=== PATIENT | male | born 1940 | race Caucasian/White ===

== ENCOUNTER 2019-11-20 08:11 | Day surgery (SDC) | payer MEDICARE, SELFPAY ==
[2019-11-02 08:42] VITALS: BMI 23.3
--- NOTE | 2019-11-03 08:00 | HP_ITS ---
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 Wili Pike MD) Smoking Status: Current every day smoker alcohol intake: never HPI HPI HPI: ZULEIMA WILKES, is a 79 M who presents to the office today for HPI HPI Surgical H&P: Yes HPI: ZULEIMA WILKES, is a 79 M who presents to the office today for Screening colonoscopy. The patient does not report any abdominal pain or blood in his stool. He does not have any family history of colon cancer. He has never underwent a colonoscopy in the past. ROS General General: No weight change or fatigue Cardio Cardiovascular: No murmur, pacemaker, heart disease, atrial fibrillation, high blood pressure, heart attack, heart stent, palpitations, shortness of breat with exertion or chest pain Psych Psychiatric: No depression or anxiety Resp Respiratory: No shortness of breath, No sleep apnea, No cough, No COPD, No asthma, No emphysema, No wheezing Gastro Gastrointestinal: No abdominal pain, No nausea or vomiting, No diarrhea, No constipation, No blood in stool, No acid reflux, No hemorrhoids, No ulcers, No gallbladder problem, No black,tarry stools Dur Hematologic: No blood thinners Exam Const General: cooperative Orientation: alert, oriented x3 Resp Effort & Inspection: normal respiratory effort Auscultation: clear to auscultation bilaterally Cardio Rate: regular rate Rhythm: regular rhythm Heart Sounds: no murmurs GI Inspection: non-distended Palpation: soft, nontender Assessment & Plan Problems 1. Screen for colon cancer Z12.11 2. Tobacco abuse Z72.0 Plan The patient is over 75 but I believe he still warrants a screening colonoscopy as he has never had one. He would not require any further screenings after this. I discussed endoscopy with the patient and the patient would like to proceed. I discussed tobacco cessation with the patient as well and he said he is trying. I explained endoscopy in detail to the patient. I explained the risks including but not limited to stroke or heart attack with anesthesia, perforation of the GI tract, bleeding, infection. I explained that any of these could necessitate further emergency surgery. The patient understands and all questions were answered sufficiently. The patient wishes to proceed with procedure. We discussed the current risks associated with COVID-19. While it is understood that there is a community spread of COVID-19, the risk of jose g COVID-19 while at [facility] ([facility]) is very low; however, the risk cannot be completely mitigated because of the community spread of the disease. We discussed in detail the risk of exposure to and/or potential harm posed by the COVID-19 virus with having a surgery/procedure at this time versus the risk of delaying the surgery/procedure. It is not possible to know either the risk of delaying the surgery or procedure or chance of getting an infection with perfect accuracy, but a joint decision was made to proceed at this time with the scheduled surgery/procedure as indicated on the consent form. Patient was notified that we will need to comply with any screening or testing [facility] wishes to perform or that surgery may be delayed for any positive results. Wili Pike MD Pager: [facility] [address] [place] [address], [address] [place] [address] Office: Orders Orders: Colonoscopy 11/02/19 Z12.11 Coding Level of Care Code Off vis,new,level 2 Diagnoses Screen for colon cancer Z12.11 Tobacco abuse Z72.0 11/03/19 0800 <Electronically signed by Wili low MD> Date _ Wili Pike MD I have re-examined the patient. There are no clinical changes since date of exam.
[2019-11-20] VITALS (7 sets, daily range): BP systolic 135–172; BP diastolic 75–95; PULSE 61–73; RESP 16; TEMP 36.1–36.4; O2SAT 96–100; BMI 26.1
[2019-11-20] MEDS: Lactated Ringers 1,000 ML 100 ML IV ×2 (08:40→10:16)
--- NOTE | 2019-11-20 09:30 | COLBX_PTH ---
PATIENT: ZULEIMA WILKES LOC: EN U#:[id number] AGE/SX: 79/M ROOM: RE11/20/[address]: Dr. Wili Pike MD : 1940 BED: DIS: 11/20/2019 SPEC #: [id number] RECD: 11/20/19 10:16 STATUS: VISHNU GEETHA #: [id number] SHELIA: 11/20/19 09:[address]: Wili Pike DEPT: SURGICAL PATHOLOGY RECD BY: Maxime Luevano ENTERED: 11/20/19 11:37 SP TYPE: COLON BX OTHR DR: Dr. Noe Atkins MD Tissues: A - Ascending colon B - Transverse colon C - Transverse colon D - Transverse colon E - Transverse colon F - Transverse colon G - Sigmoid colon biopsy Procedures: Surgery Specimen Level IV HEADER OPERATION: Colonoscopy (MAC) PRE-OP DIAGNOSIS: Screening TISSUE SUBMITTED: A - Ascending colon polyps (2), B - Transverse colon polyp #1, C - Mid transverse colon polyp #2, D - Transverse polyp #3, E - Transverse polyp biopsy #4, F - Distal transverse polyp #5, G - Sigmoid colon polyp MICROSCOPIC DIAGNOSIS A. Ascending colon polyps, biopsy: Fragments of tubular adenoma. B. Transverse colon polyp #1, biopsy: Fragments of tubular adenoma. C. Mid transverse colon polyp #2, biopsy: Tubular adenoma. D. Transverse colon polyp #3, biopsy: Fragments of colonic mucosa with cautery artifacts. E. Transverse colon polyp #4, biopsy: Tubular adenoma. F. Distal transverse colon polyp #5, biopsy: Tubular adenoma. G. Sigmoid colon polyp, biopsy: Tubular adenoma. Fragments of fecal material. SJ:louie 11/23/19 MICROSCOPIC DESCRIPTION Slides are reviewed. GROSS DESCRIPTION A - Received in fixative is one container labeled with the patient's name and designated ascending polyp. The specimen consists of multiple irregular fragments of light king soft tissue that in aggregate measure 1.5 x 0.5 x 0.3 cm. The specimen is totally submitted in one cassette. B - Received in fixative is one container labeled with the patient's name and designated transverse polyp. The specimen consists of multiple irregular fragments of light king soft tissue that in aggregate measure 1 x 0.5 x 0.1 cm. The specimen is totally submitted in one cassette. C - Received in fixative is one container labeled with the patient's name and designated mid transverse polyp #2. The specimen consists of a piece of king-pink polyp measuring 1 x 0.6 x 0.5 cm. The specimen is bisected and submitted entirely in one cassette. D - Received in fixative is one container labeled with the patient's name and designated transverse polyp #3. The specimen consists of two irregular fragments of light king soft tissue that in aggregate measure 0.2 x 0.2 x 0.1 cm. The specimen is totally submitted in one cassette. E - Received in fixative is one container labeled with the patient's name and designated transverse polyp #4 biopsy. The specimen consists of one irregular fragment of light king soft tissue that measures 0.4 x 0.3 x 0.1 cm. The specimen is totally submitted in one cassette. F - Received in fixative is one container labeled with the patient's name and designated transverse polyp #5. The specimen consists of a piece of king-pink polyp measuring 0.3 x 0.3 x 0.2 cm. G - Received in fixative is one container labeled with the patient's name and designated sigmoid polyp. The specimen consists of multiple irregular fragments of king soft tissue mixed with fecal material that in aggregate measure 2.5 x 0.5 x 0.1 cm. The specimen is totally submitted in one cassette. / SJ:rg 11/20/19 TC:1 CPT: 72449 x7
--- NOTE | 2019-11-20 10:10 | OP.COLON_ITS ---
Patient Name: Buck Andre Procedure Date: 11/20/2019 9:18 AM Date of : 1940 Age: 79 Procedure: Colonoscopy Indications: Screening for colorectal malignant neoplasm Providers: Wili Pike MD Referring MD: Noe Atkins MD Medicines: Monitored Anesthesia Care Patient Profile: This is a 79 year old male. Refer to note in patient chart for documentation of history and physical. Last Colonoscopy: none. The patient's first colonoscopy is today. Complications: No immediate complications. Estimated blood loss: Minimal. Procedure: Pre-Anesthesia Assessment: - Prior to the procedure, a History and Physical was performed, and patient medications and allergies were reviewed. The patient's tolerance of previous anesthesia was also reviewed. The risks and benefits of the procedure and the sedation options and risks were discussed with the patient. All questions were answered, and informed consent was obtained. Prior Anticoagulants: The patient has taken no previous anticoagulant or antiplatelet agents. After reviewing the risks and benefits, the patient was deemed in satisfactory condition to undergo the procedure. After I obtained informed consent, the scope was passed under direct vision. Throughout the procedure, the patient's blood pressure, pulse, and oxygen saturations were monitored continuously. The pediatric colonoscope was introduced through the anus and advanced to the cecum, identified by appendiceal orifice and ileocecal valve. The colonoscopy was performed without difficulty. The patient tolerated the procedure well. The quality of the bowel preparation was good. Scope In: 9:30:48 AM Scope Withdrawal Time 0 hours 26 minutes 38 seconds Scope Out: 10:03:50 AM Total Procedure Duration Time 0 hours 33 minutes 2 seconds Findings: Eight polyps were found in the sigmoid colon, transverse colon and ascending colon. These polyps were removed with a hot snare. Resection and retrieval were complete. Multiple small-mouthed diverticula were found in the sigmoid colon. Internal hemorrhoids were found. Impression: - Eight polyps in the sigmoid colon, in the transverse colon and in the ascending colon, removed with a hot snare. Resected and retrieved. - Diverticulosis in the sigmoid colon. - Internal hemorrhoids. Recommendation: - Repeat colonoscopy in 3 years for surveillance of multiple polyps. - Continue present medications. Procedure Code(s): --- Professional --- 40981, Colonoscopy, flexible; with removal of tumor(s), polyp(s), or other lesion(s) by snare technique Diagnosis Code(s): --- Professional --- Z12.11, Encounter for screening for malignant neoplasm of colon D12.5, Benign neoplasm of sigmoid colon D12.3, Benign neoplasm of transverse colon (hepatic flexure or splenic flexure) D12.2, Benign neoplasm of ascending colon K64.8, Other hemorrhoids K57.30, Diverticulosis of large intestine without perforation or abscess without bleeding CPT copyright 2017 [employer]. All rights reserved. The codes documented in this report are preliminary and upon supervisor engines road review may be revised to meet current compliance requirements. Wili Pike MD 11/20/2019 10:10:06 AM This report has been signed electronically. Number of Addenda: 0 Note Initiated On: 11/20/2019 9:18 AM
--- NOTE | 2019-11-20 10:10 | OP.CCLET_ITS ---
11/20/2019 Noe Atkins MD [address] [id number] Re : Colonoscopy procedure for Buck Andre Dear Dr. Atkins This procedure was performed on Wednesday, November 20, 2019. My impressions and recommendations are as follows: Impressions : - Eight polyps in the sigmoid colon, in the transverse colon and in the ascending colon, removed with a hot snare. Resected and retrieved. - Diverticulosis in the sigmoid colon. - Internal hemorrhoids. Recommendations : - Repeat colonoscopy in 3 years for surveillance of multiple polyps. - Continue present medications. My findings are described in the full procedure note, which is enclosed. If I can be of further assistance, please feel free to contact me at Doctor phone number(s): , Work: . Sincerely, Wili Pike MD 11/20/2019 10:10:06 AM This report has been signed electronically.
== END 2019-11-20 10:47 | disposition home or self-care (01) ==
LOC: EN 08:12 → AC 08:12
PROVIDERS: Anesthesiology; PCP Family Medicine; Referring Provider Family Medicine; Visit Provider Surgery
PROC: 0DJD8ZZ Inspection of Lower Intestinal Tract, Via Natural or Artificial Opening Endoscopic (ICD-10-PCS; CPT 45378; principal; 2019-11-20 09:25)
DX: Z12.11 Encounter for screening for malignant neoplasm of colon (principal); D12.2 Benign neoplasm of ascending colon; D12.5 Benign neoplasm of sigmoid colon; D12.3 Benign neoplasm of transverse colon; Z11.59 Encounter for screening for other viral diseases; K57.30 Diverticulosis of large intestine without perforation or abscess without bleeding; K64.8 Other hemorrhoids; F17.200 Nicotine dependence, unspecified, uncomplicated; Z79.899 Other long term (current) drug therapy
CPT/HCPCS: 45385; 87635; 88305; 94799; J7120; J2405; U0003

== ENCOUNTER 2024-08-26 19:04 | Emergency (ER) | payer MEDICARE, SELFPAY ==
[2024-08-26] VITALS (13 sets, daily range): BP systolic 149–223; BP diastolic 52–136; PULSE 29–105; RESP 12–21; TEMP 36–36.8; O2SAT 76–100; BMI 25.1
--- NOTE | 2024-08-26 19:19 | EKG12_ITS ---
Test Reason : SNYCOPE Blood Pressure : */* mmHG Vent. Rate : 32 BPM Atrial Rate : 78 BPM P-R Int : * ms QRS Dur : 144 ms QT Int : 540 ms P-R-T Axes : 63 -5 25 degrees QTcB Int : 394 ms Critical Test Result: Low HR , Arrhythmia , AV Block Sinus rhythm with complete heart block and Idioventricular rhythm Right bundle branch block Abnormal ECG Emergency Transfer for [facility] Critical Confirmed by KYLE UP ([id number]), video tape editor CRYSTAL HAGER ([id number]) on 08/31/2024 7:29:03 AM Referred By: KYRA/CAYDEN Confirmed By: KYLE UP
--- NOTE | 2024-08-26 19:35 | EDS_ITS ---
HPI History of Present Illness Chief Complaint: Syncope Informant: patient and family Narrative Narrative: 84-year-old male presenting to the emergency room with dizziness and fall. Patient states over the past couple months he has had intermittent episodes of lightheadedness/dizziness. He states he has been able to lay down when he gets back up he feels fine. Today he began to feel that way he laid down on the couch to take a nap. He states that when he woke he was on the floor does not recall how he got there. He notes he hit his head on something and has pain in the right ankle and foot. He states he has been having some increased shortness of breath recently. He notes a history of hypertension and hypercholesterolemia is on lisinopril and rosuvastatin. He denies any known coronary artery disease or cardiac dysrhythmias. He denies any current neck or back pain. [facility] Medical History Hypercholesteremia Hypertension Rash Home Medications ?Medication ?Instructions ?Recorded ?Last Taken ?Type loratadine 10 mg tablet (Allergy 10 mg PO DAILY Unknown History Relief (loratadine)) lisinopril 40 mg tablet 40 mg PO DAILY 08/26/24 Unkn own History rosuvastatin 5 mg tablet 5 mg PO DAILY 08/26/24 Unkno wn History Allergy/AdvReac Type Severity Reaction Status Date / Time No Known Allergies Allergy Verified 08/26/24 19:23 Social History Smoking Status: Current every day smoker tobacco type: cigars alcohol intake: never ROS ROS ED Constitutional Constitutional ED: Denies chills, fever(s) or weight loss Eyes Eyes: Denies change in vision or diplopia ENT ENT ED: Denies ear pain, rhinorrhea or sore throat Cardiovascular Cardiovascular: Reports other Details: Intermittent lightheadedness ; Denies chest pain, orthopnea, palpitations or racing heartbeat Respiratory/Chest Respiratory/Chest: Reports dyspnea and dyspnea on exertion; Denies cough or orthopnea Gastrointestinal Gastrointestinal: Denies abdominal pain, diarrhea, nausea or vomiting Genitourinary Genitourinary ED: Denies dysuria, hematuria or urinary frequency Musculoskeletal Musculoskeletal: Reports other Details: Right ankle/foot pain ; Denies arthralgias, back pain, myalgias or neck pain Integumentary Denies abscess or rash Neurologic Neurologic: Denies headache(s) or weakness Psychiatric Psychiatric: Denies anxiety, depression, suicidal ideation or suicidal thoughts Endocrine Endocrinology: Denies polydipsia, polyphagia or polyuria Allergic/Immunologic Allergic/Immunologic ED: Denies mouth swelling, tongue swelling or urticaria EXAM Physical Exam Const Vital Signs: 08/26/24 19:06 08/26/24 19:35 08/26/24 19:36 Temperature 96.8 F L Temperature Source Temporal Pulse Rate 32 L 74 Respiratory Rate 16 21 H Respiratory Effort Short of Breath Respiratory Depth Respiratory Pattern Normal Blood Pressure 169/136 H 223/54 H Blood Pressure Mean 147 110 Pulse Ox 100 95 Oxygen Delivery Method Room Air Room Air 08/26/24 19:36 08/26/24 19:40 08/26/24 19:46 Temperature Temperature Source Pulse Rate Respiratory Rate Respiratory Effort Short of Breath Short of Breath Respiratory Depth Normal Respiratory Pattern Normal Normal Blood Pressure Blood Pressure Mean Pulse Ox 98 Oxygen Delivery Method Room Air 08/26/24 20:00 08/26/24 20:15 08/26/24 20:30 Temperature Temperature Source Pulse Rate 42 L 31 L 30 L Respiratory Rate 18 12 Respiratory Effort Respiratory Depth Respiratory Pattern Blood Pressure 198/66 H 149/109 H Blood Pressure Mean 105 122 Pulse Ox 97 97 Oxygen Delivery Method Room Air Room Air 08/26/24 20:30 08/26/24 20:32 08/26/24 20:45 Temperature Temperature Source Pulse Rate 50 L 55 L 29 L Respiratory Rate 15 13 16 Respiratory Effort Respiratory Depth Respiratory Pattern Blood Pressure 176/52 H Blood Pressure Mean 84 Pulse Ox 76 83 100 Oxygen Delivery Method Room Air 08/26/24 21:00 08/26/24 21:15 08/26/24 21:30 Temperature Temperature Source Pulse Rate 30 L 95 94 Respiratory Rate 17 13 15 Respiratory Effort Respiratory Depth Respiratory Pattern Blood Pressure 158/53 H Blood Pressure Mean 81 Pulse Ox 96 100 100 Oxygen Delivery Method Room Air 08/26/24 21:45 08/26/24 22:00 08/26/24 22:00 Temperature 98.2 F Temperature Source Pulse Rate 105 H 82 82 Respiratory Rate 17 16 16 Respiratory Effort Respiratory Depth Respiratory Pattern Blood Pressure 175/68 H 175/68 H Blood Pressure Mean 99 103 Pulse Ox 94 93 93 Oxygen Delivery Method Room Air Positive well nourished and well developed General Appearance ED: well developed HEENT Reports normocephalic and moist mucous membranes HEENT Narrative: There is a midline contusion of the forehead. Eyes PERRL and EOMs intact bilaterally Neck no lymphadenopathy, supple and no JVD Resp normal respiratory effort and clear to auscultation bilaterally Cardio no murmurs Rate: bradycardia GI normal to inspection, nondistended, normoactive bowel sounds and non-tender Palpation: soft Back/Spine no CVA tenderness and normal ROM Extremity normal to inspection General Extremety ED: Negative for edema General Extremity: Negative for edema Neuro oriented x3 and CN's II-XII intact bilaterally Neuro Narrative: GCS 15 Sensorium / Orientation: alert Motor Exam: strength 5/5 throughout Psych mental status grossly normal Mood & Affect: Negative for depressed or tearful Skin no rashes or lesions noted Skin Narrative: There is some mild swelling and contusion noted over the dorsal lateral aspect of the right foot just inferior to the lateral malleolus. The lateral malleolus is mildly tender to palpation. MDM MDM MDM Narrative Medical decision making narrative: Differential diagnosis includes cardiac dysrhythmia including third-degree heart block, acute coronary syndrome, electrolyte abnormalities, intracranial hemorrhage, ankle foot fracture ankle sprain foot sprain ankle foot contusion congestive heart failure EKG in triage confirms third-degree heart block. Patient is mentating normally and is actually on the hypertensive side. CT of the brain was obtained read by radiology reviewed by myself as no acute intracranial hemorrhage. My independent interpretation of the plain films of the right ankle and foot is no acute fracture. My independent interpretation of the chest x-ray is mild vascular congestion. Patient's white count is 12.2 hemoglobin 14.5 platelet count of 256. Normal coags. BNP is 310 magnesium 2.5 potassium 4.0 sodium 139. Glucose is 123. The patient's troponin is 14. Patient has remained on the hypertensive side. His heart rate remains around 30. We do not have the ability to put a pacemaker in him this week at this institution. He does not have a preference for larger hospitals. I spoke with [facility] and Dr. Rivera who has accepted him. Patient was updated and is comfortable with this plan History & Record Review Discussion w/independent historian: Patient and Family Additional record(s) reviewed:: Prior outpatient record, Prior ED visit and Prior labs Lab Data Attestation: I reviewed the patient's lab results. Labs: Laboratory Results - last 24 hr 08/26/24 08/26/24 19:40 21:39 WBC 12.2 H RBC 4.78 Hgb 14.5 Hct 44.6 MCV 93.3 MCH 30.3 MCHC 32.5 RDW Std Deviation 45.3 H RDW Coeff of Palomo 13.3 Plt Count 256 MPV 10.0 Immature Gran % (Auto) 0.500 Neut % (Auto) 58.5 Lymph % (Auto) 29.3 Falls % (Auto) 7.7 Eos % (Auto) 3.0 Baso % (Auto) 1.0 Absolute Neuts (auto) 7.1 Absolute Lymphs (auto) 3.56 Nucleated RBC % 0 PT 13.5 INR 1.0 APTT 25.4 Sodium 139 Potassium 4.0 Chloride 102 Carbon Dioxide 24.5 Anion Gap 12 BUN 17 Creatinine 0.90 Estim Creat Clear Calc 54.10 Est GFR (MDRD) Non-Af 85 BUN/Creatinine Ratio 18.9 Glucose 123 H Calcium 9.5 Magnesium 2.5 H Troponin T High Sens 14 Troponin T Hi Sens 2 Hr 15 NT pro BNP II 310 Radiography Diagnostic Testing: Clinical Impression(s) from Imaging Studies Brain CT 08/26/24 19:43 IMPRESSION: No acute abnormality Reading Location: [facility] Ankle X-Ray 08/26/24 19:50 IMPRESSION: Negative right ankle Reading Location: [facility] Chest X-Ray 08/26/24 19:50 IMPRESSION: Prominent bilateral interstitial markings, no focal consolidation. [facility] 08/26/24 19:50 IMPRESSION: NO ACUTE FRACTURE OR DISLOCATION. Reading Location: [facility] EKG Initial EKG: Attestation: I personally reviewed and interpreted this EKG as follows: Comments: Third-degree heart block is noted with a ventricular rate of 32 bpm. Management Discussion w/another healthcare provider: Licensed Clinical Social Worker (Dr. 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, Discussing w/Consultants, Arranging Admission or Transfer and Performing Direct Patient Care at Bedside Discharge Plan Triage Chief Complaint: Syncope ED Provider: Clarke Stephens Dx/Rx/DC Orders Clinical Impression: Third degree heart block, Contusion of foot, right Prescriptions: No Action loratadine [Allergy Relief (loratadine)] 10 mg tablet 10 mg PO DAILY lisinopril 40 mg tablet 40 mg PO DAILY rosuvastatin 5 mg tablet 5 mg PO DAILY Primary Care Provider: Noe Atkins Referrals: Noe Atkins MD [Primary Care Provider] - Print Language: Italian Disposition Disposition: Acute Care Hospital Discharge Location: [facility]
--- NOTE | 2024-08-26 19:43 | CT_ITS ---
PROCEDURE: BRAIN/HEAD WITHOUT CONTRAST 08/26/2024 REASON FOR EXAM: INJURY TECHNIQUE: Head CT without intravenous contrast. Coronal and Sagittal reconstruction series were provided. One or more dose reduction techniques were used (e.g., Automated exposure control, adjustment of the mA and/or kV according to patient size, use of iterative reconstruction technique. FINDINGS: The bony calvarium is intact and the paranasal sinuses are clear. No bony destructive changes are seen. The ventricles are normal in caliber. Normal brainstem and cerebellum. No hemorrhage or edema CT/Brain/Head without Contrast IMPRESSION: No acute abnormality [facility]
--- NOTE | 2024-08-26 19:50 | RAD_ITS ---
PROCEDURE: ANKLE MIN 3 VIEWS 08/26/2024 REASON FOR EXAM: INJURY TECHNIQUE: 3 views of the right ankle FINDINGS: No fracture or dislocation. RAD/Ankle min 3 Views IMPRESSION: Negative right ankle [facility]
--- NOTE | 2024-08-26 19:50 | RAD_ITS ---
PROCEDURE: FOOT MIN 3 VIEWS 08/26/2024 REASON FOR EXAM: INJURY TECHNIQUE: 3 views of the right foot. COMPARISON: None FINDINGS: Bones: No visible fracture. No suspicious bone lesion. Joints: Normal alignment. Soft tissues: Soft tissues are unremarkable. Other: RAD/Foot min 3 Views IMPRESSION: NO ACUTE FRACTURE OR DISLOCATION. Reading Location: [facility]
--- NOTE | 2024-08-26 19:50 | RAD_ITS ---
PROCEDURE: CHEST 1 VIEW (PORTABLE) 08/26/2024 REASON FOR EXAM: DYSPNEA TECHNIQUE: Frontal view of the chest. COMPARISON: None FINDINGS: Hardware: None Heart: The heart size is normal. Lungs: Prominent bilateral interstitial markings. No pneumothorax. Bones: Degenerative changes of the thoracic spine. Other: RAD/Chest 1 View (Portable) IMPRESSION: Prominent bilateral interstitial markings, no focal consolidation. Reading Location: [facility]
[2024-08-26 20:00] LABS: Absolute Lymphocyte Count 3.56 X10^3/uL (0.83-4.51); Absolute Neutrophil Count 7.1 X10^3/uL (2.0-7.7); Basophil# 0.12 X10^3/uL; Eosinophil# 0.37 X10^3/uL; Hematocrit 44.6 % (40-54); Hemoglobin 14.5 g/dL (13.0-16.5); Lymphocyte # 3.56 X10^3/ul (0.83-4.51); Lymphocyte % 29.3 % (19-41); Mean Corp Hgb Conc 32.5 g/dL (32-36); Mean Corpuscular Hgb 30.3 pg (27.0-32.0); Mean Corpuscular Volume 93.3 fL (80-94); Monocyte# 0.93 X10^3/uL; Monocyte% 7.7 % (0-10); NRBC Flagged by Analyzer 0 % (0-5); Neutrophil # 7.11 X10^3/uL (2.7-7.7); Neutrophil % 58.5 % (47-70); Platelet Count 256 K/mm3 (150-450); RBC Distribution Width CV 13.3 % (11.6-14.6); RBC Distribution Width SD 45.3 fl (35.1-43.9); Red Blood Count 4.78 M/mm3 (4.6-6.2); White Blood Count 12.2 K/mm3 (4.4-11.0)
[2024-08-26 20:03] LABS: Prothrombin Time (Protime)PT. 13.5 SECONDS (11.7-14.9)
[2024-08-26 20:04] LABS: Partial Thromboplast Time 25.4 Seconds (24.1-36.2)
[2024-08-26 20:16] LABS: Magnesium 2.5 mg/dL (1.5-2.2); Pro- Brain NATRIURETIC PEPTIDE 310 pg/mL (<=1800)
[2024-08-26 20:25] LABS: Anion Gap 12 (5-15); BUN 17 mg/dL (4-19); BUN/Creat Ratio 18.9 RATIO (10-20); Calcium,Total 9.5 mg/dL (7.6-11.0); Carbon Dioxide 24.5 mmol/L (21.0-32.0); Chloride 102 mmol/L (98-108); EST Glomerular Filtration Rate 85 (>60); Glucose 123 mg/dL (70-99); Sodium Level 139 mmol/L (133-145)
[2024-08-26 20:38] LABS: Troponin T High Sensitivity 14 ng/L (<=22)
--- NOTE | 2024-08-26 21:11 | ED.RN ---
RADIOLOGY CALLED FOR OUTSTANDING CHEST X-RAY. RESPONSE WE RE-SENT IT INCASE IT DIDN'T ORIGINALLY GO THROUGH.
[2024-08-26 22:07] LABS: Troponin T High Sens 2 HR 15 ng/L (<=22)
--- NOTE | 2024-08-26 22:13 | ED.RN ---
REPORT CALLED TO [facility]. NO FURTHER QUESTIONS BY THE NURSE AT THIS TIME.
--- NOTE | 2024-08-26 22:33 | ED.RN ---
TRANSPORT TEAM AT BEDSIDE. REPORT OF CARE GIVEN AT THIS TIME.
== END 2024-08-26 22:51 | disposition short-term general hospital (02) ==
PROVIDERS: Emergency Provider Emergency Medicine; PCP Family Medicine; Visit Provider Emergency Medicine
DX: I44.2 Atrioventricular block, complete (principal); I10 Essential (primary) hypertension; S90.31XA Contusion of right foot, initial encounter; R06.09 Other forms of dyspnea; E78.00 Pure hypercholesterolemia, unspecified; W19.XXXA Unspecified fall, initial encounter; M25.571 Pain in right ankle and joints of right foot; F17.290 Nicotine dependence, other tobacco product, uncomplicated; Z79.899 Other long term (current) drug therapy
CPT/HCPCS: 70450; 71045; 73610; 73630; 80048; 83735; 83880; 84484; 85025; 85610; 85730; 93005; 99285; A4216

== ENCOUNTER 2024-10-29 15:36 | Emergency (ER) | payer MEDICARE, SELFPAY ==
[2024-10-29 15:37] VITALS: BP 153/95; PULSE 78; RESP 18; TEMP 36.9; O2SAT 98; BMI 25.7
--- NOTE | 2024-10-29 16:07 | EX.ED.DYSGE1 ---
HPI History of Present Illness Chief Complaint: Sore Throat Narrative Narrative: 84-year-old male past medical history of pacemaker presents with reported swelling of the left side of his neck. States it happened this afternoon around 2 PM, approximately 2 hours ago. It swelled up a large amount, but he states that after little bit it went down. It may have returned to normal. He denies any fevers or chills, no nausea or vomiting, no difficulty swallowing or breathing. No sore throat. He states that it is only the left area on his neck that was swollen but has now gone down. [facility] Medical History Hypercholesteremia Hypertension Rash Home Medications ?Medication ?Instructions ?Recorded ?Last Taken ?Type loratadine 10 mg tablet (Allergy 10 mg PO DAILY 11/02/19 Unknown History Relief (loratadine)) lisinopril 40 mg tablet 40 mg PO DAILY 08/26/24 Unknown History rosuvastatin 5 mg tablet 5 mg PO DAILY 08/26/24 Unknown History Allergy/AdvReac Type Severity Reaction Status Date / Time No Known Allergies Allergy Verified 10/29/24 15:41 Social History Smoking Status: Current every day smoker tobacco type: cigars alcohol intake: never ROS ROS ED ROS Narrative Review of systems positive for left-sided neck swelling. Resolved almost completely. No fevers or chills, no sore throat, no difficulty swallowing. EXAM Physical Exam Narrative Exam Narrative: Afebrile. Vital signs noted. Nontoxic-appearing. Focused exam/HEENT examination shows airway patent, no drooling or trismus, no Deon angina. Speaking in full sentences. No crepitance of neck, no erythema, no noted swelling. Neck soft and supple. Const Vital Signs: 10/29/24 15:37 10/29/24 17:13 10/29/24 18:05 Temperature 98.4 F Temperature Source Oral Pulse Rate 78 71 Respiratory Rate 18 18 Respiratory Effort Normal Blood Pressure 153/95 H 176/89 H Blood Pressure Mean 114 118 Pulse Ox 98 96 Oxygen Delivery Method Room Air MDM MDM MDM Narrative Medical decision making narrative: Differential diagnosis includes but not limited to submandibular gland swelling from sialolithiasis versus viral infection versus thyroid nodule versus abscess. On my examination, there is no noted erythema or crepitance or no noted swelling. Pulse ox 98% on room air. Patient was reassured. However, he is mildly insistent that there was swelling there. I do not think he has strep pharyngitis as he is not having difficulty swallowing or pain with swallowing. CT imaging without contrast will be obtained to look for any sort of mass. I reviewed the radiology report which shows a mildly enlarged edematous left submandibular gland with surrounding inflammatory fat stranding and a small 3 mm stone anterior superior likely reflecting sialolithiasis and sialoadenitis. There is no ductal dilatation suggesting there may have been recent passage of an obstructing stone. At this point in time, I feel he can be discharged to follow-up with otolaryngology and/or his primary care provider. He was told of the upper mediastinal lymph nodes in the upper thorax that are indeterminant but possibly reactive. He should have follow-up with his primary care provider for outpatient CT of the chest. He was told to use sialagogues over the next few days and return instructions to the emergency department were reviewed. I do not feel that he requires antibiotics or observation at this time. Disposition is discharged home in stable condition. History & Record Review Discussion w/independent historian: Patient Additional record(s) reviewed:: Prior ED visit (Noncontributory to current chief complaint) Radiography Diagnostic Testing: Clinical Impression(s) from Imaging Studies Soft Tissue Neck CT 10/29/24 16:14 IMPRESSION: Mildly enlarged/edematous left submandibular gland with surrounding inflammatory fat stranding, and a small 3 mm stone anterior superiorly likely reflecting sialolithiasis and sialoadenitis. No ductal dilatation, suggesting there may have been recent passage of an obstructing stone. Mildly prominent left submandibular and level 2 upper cervical lymph nodes, likely reactive. There are also numerous mildly prominent upper mediastinal lymph nodes seen in the upper thorax, indeterminate but possibly reactive. Consider chest CT for further evaluation. Reading Location: [facility] Discharge Plan Triage Chief Complaint: Sore Throat Other Complaint: Edema ED Provider: Joel Mathew Dx/Rx/DC Orders Clinical Impression: Submandibular gland swelling, Sialolithiasis of submandibular gland Instructions: ED Salivary Gland Swelling UKO, ED Salivary Gland Stones Prescriptions: No Action loratadine [Allergy Relief (loratadine)] 10 mg tablet 10 mg PO DAILY lisinopril 40 mg tablet 40 mg PO DAILY rosuvastatin 5 mg tablet 5 mg PO DAILY Primary Care Provider: Dwight Hernandez Referrals: Michele Thurston MD [Med Staff - Active Staff] - 3-5 Days Noe Atkins MD [Med Staff - Active Staff] - 3-5 Days if not improving Activity Restrictions/Additional Instructions: Suck on sour candies a few times a day over the next few days. Follow-up with your primary care provider and/or ENT/otolaryngology. Return with increased swelling, fever, new or worsening symptoms. Print Language: Icelandic Disposition Disposition: Home, Self Care
--- NOTE | 2024-10-29 16:14 | CT_ITS ---
PROCEDURE: CT SOFT TISSUE NECK WITHOUT CONTRAST 10/29/2024 REASON FOR EXAM: SWELLING-RESOLVED TECHNIQUE: CT of the neck without contrast. Note that noncontrast technique limits evaluation. One or more dose reduction techniques were used (e.g., Automated exposure control, adjustment of the mA and/or kV according to patient size, use of iterative reconstruction technique). RADIATION DOSE SUMMARY: CTDlvol: 14.8 mGy DLP: 480.76 mGycm COMPARISON: None. FINDINGS: Airway: Midline and widely patent. No prevertebral/retropharyngeal edema. Normal appearance of the epiglottis, and laryngeal soft tissues. Salivary glands: Asymmetric mild enlargement and surrounding inflammatory fat stranding of the left submandibular salivary gland, compatible with sialoadenitis. There is a small roughly 3 mm calcific density at the anterior superior aspect of the left submandibular gland, likely a sialolith. No definite submandibular ductal dilatation or additional stone, although this likely reflects sialolithiasis. The remaining major salivary glands otherwise appear normal. Multiple calcified palatine tonsilliths noted. Lymph nodes: Mildly prominent left submandibular and level 2 cervical lymph nodes, most likely reactive. Numerous mildly prominent lymph nodes are seen in the upper mediastinum paratracheal region, nonspecific but may also be reactive in nature. Thyroid: Subcentimeter hypodense cyst/nodule in the left lobe. Vasculature: Grossly normal in course and caliber. Mild atherosclerotic plaque at the carotid artery bifurcations and distal vertebral artery V4 segments. Orbits: Grossly normal with prior bilateral cataract surgery. Paranasal sinuses and mastoids: Clear mastoids. Well-aerated paranasal sinuses with a small left maxillary mucosal polyp/retention cyst. Lung apices: Moderate centrilobular emphysema. No focal apical nodules. Bones: Edentulous maxilla and mandible. Moderate degenerative changes of the cervical spine. No aggressive osseous lesion. Other: Partially imaged with left chest wall dual lead ICD. CT/Soft Tissue Neck without Contr IMPRESSION: Mildly enlarged/edematous left submandibular gland with surrounding inflammator y fat stranding, and a small 3 mm stone anterior superiorly likely reflecting sialolithiasis and sialoadenitis. No ductal dilat ation, suggesting there may have been recent passage of an obstructing stone. Mildly prominent left submandibular and level 2 upper cervical lymph nodes, lik court reactive. There are also numerous mildly prominent upper mediastinal lymph nodes seen in the upper thorax, indeterminate but possibly reactive. Consider chest CT for further evaluation. Reading Location: [id number]
[2024-10-29 18:05] VITALS: BP 176/89; PULSE 71; RESP 18; O2SAT 96
[2024-10-29 18:57] VITALS: BP 176/89; PULSE 71; RESP 18; TEMP 36.9; O2SAT 96
== END 2024-10-29 18:58 | disposition home or self-care (01) ==
PROVIDERS: Emergency Provider Emergency Medicine; PCP Family Medicine; Referring Provider Emergency Medicine; Visit Provider Emergency Medicine
DX: J02.9 Acute pharyngitis, unspecified (principal); E78.00 Pure hypercholesterolemia, unspecified; R60.9 Edema, unspecified; I10 Essential (primary) hypertension; Z95.0 Presence of cardiac pacemaker; Z79.899 Other long term (current) drug therapy; F17.200 Nicotine dependence, unspecified, uncomplicated; K11.8 Other diseases of salivary glands; K11.5 Sialolithiasis
CPT/HCPCS: 70490; 99283

== ENCOUNTER 2024-11-16 17:58 | Emergency (ER) | payer MEDICARE, SELFPAY ==
[2024-11-16 17:59] VITALS: BP 162/82; PULSE 75; RESP 18; TEMP 36.7; O2SAT 97; BMI 26.2
[2024-11-16 18:28] VITALS: PULSE 47; RESP 16; O2SAT 100
[2024-11-16] MEDS: Tetracaine 0.5% Ophthalmic Bottle 1 DRP OPHTHALMIC (18:54)
--- NOTE | 2024-11-16 19:42 | EX.ED.VIS.EY ---
HPI History of Present Illness Chief Complaint: Eye Problem Detail of Chief Complaint: Patient was wind blew something into his eye while he was cutting the grass Informant: patient Onset/Context/Timing Location: Left Eye Onset: Today and Hours Context: Sudden Onset Timing: Continuous Current Severity: Mild Maximum Severity: Moderate Worsened by: Foreign body sensation Relieved by: Nothing Associated Symptoms Associated Symptoms - Eyes: Foreign body sensation, Pain and Redness; Negative for Burning, Crusting, Drainage, Eyelid swelling, Itching, Matting or Photophobia History of injury: Yes and Direct trauma (Per HPI narrative) Visual correction: - (Corrective lens implant to treat cataracts) Narrative Narrative: Patient is an 84-year-old male. He is status post cataract surgery. His veterinary surgeon practices through the [facility]. Patient felt something blow into his eye while cutting grass. He is flushed it numerous times. He still has a foreign body sensation. He states his eye is red and does have sensitivity to light as well. Patient is status post cataract surgery. Patient denies any other symptoms. Prior similar symptoms: No Recent Illness/Hospitalization: No [facility] Medical History (Updated 11/16/24 @ 19:[address] Sergio Young MD) Cataracts, bilateral Hypercholesteremia Hypertension Rash Home Medications ?Medication ?Instructions ?Recorded ?Last Taken ?Type loratadine 10 mg tablet (Allergy 10 mg PO DAILY 11/02/19 Unknown History Relief (loratadine)) lisinopril 40 mg tablet 40 mg PO DAILY 08/26/24 Unknown History rosuvastatin 5 mg tablet 5 mg PO DAILY 08/26/24 Unknown History Allergy/AdvReac Type Severity Reaction Status Date / Time No Known Allergies Allergy Verified 11/16/24 17:59 Social History Smoking Status: Former smoker alcohol intake: never ROS ROS ED Constitutional Constitutional ED: Denies chills, fever(s) or subjective Eyes Eyes: Reports other Details: Foreign body sensation and discomfort and slight light sensitivity ; Denies blurry vision, change in vision or diplopia ENT ENT ED: Denies ear pain, rhinorrhea or sore throat Gastrointestinal Gastrointestinal: Denies nausea or vomiting Integumentary Denies rash Neurologic Neurologic: Denies headache(s) EXAM Physical Exam Const Vital Signs: 11/16/24 17:59 11/16/24 18:28 Temperature 98.0 F Temperature Source Oral Pulse Rate 75 47 L Respiratory Rate 18 16 Blood Pressure 162/82 H Blood Pressure Mean 108 Pulse Ox 97 100 Oxygen Delivery Method Room Air Room Air Positive well nourished and well developed General Appearance ED: well developed and NAD HEENT HEENT Narrative: Normocephalic. atraumatic Nose: external nose normal and nares normal Eyes Eyes Narrative: Patient's status post cataract surgery. Pupils are irregularly shaped. There is no difference in the right left. Extraocular muscles intact. Patient has a small subconjunctival hemorrhage temporal side of his right eye. The conjunctive is injected. There is whitish discharge noted. Visual acuity is 20/50 right and left and 20/40 bilaterally. There is no preauricular lymphadenopathy. Neck no lymphadenopathy, supple and no JVD Resp normal respiratory effort Neuro oriented x3 and CN's II-XII intact bilaterally Sensorium / Orientation: alert Psych Psych Narrative: Normal Skin no wounds MDM MDM MDM Narrative Medical decision making narrative: Visual acuity was noted. Patient's eye was anesthetized with tetracaine and stained with fluorescein. Patient has small uptake of fluorescein over the sclera. There is a small disruption of the bulbi conjunctivo-. There is a subconjunctival hemorrhage noted in this area. There is no abnormality of the cornea. There is no flare or cells noted. Patient has no photophobia to direct or consensual light. Differential diagnosis is conjunctivitis due to vegetative matter or due to contact with individuals who is ill. Patient had a negative Judith test. And with no history of something striking his eye just irritation after the wind blew presume this is either due to dust or flying grass clippings. There is no obvious foreign body noted. Treatment and Re-Evaluation Narrative: Patient was treated with ciprofloxacin ophthalmic drops in the emergency department and bio was dispensed. He states he will be able to contact his veterinary surgeon to be seen in 1 to 2 days. Discharge Plan Triage Chief Complaint: Eye Problem ED Provider: Sergio Young Dx/Rx/DC Orders Clinical Impression: Traumatic subconjunctival hemorrhage of right eye, Acute conjunctivitis of right eye, Elevated blood pressure reading with diagnosis of hypertension, Bradycardia Instructions: ED Conjunctivitis, Nonspecific, ED Subconjunctival Hemorrhage Prescriptions: No Action loratadine [Allergy Relief (loratadine)] 10 mg tablet 10 mg PO DAILY lisinopril 40 mg tablet 40 mg PO DAILY rosuvastatin 5 mg tablet 5 mg PO DAILY Primary Care Provider: Dwight Hernandez Referrals: Dwight Hernandez MD [Primary Care Provider] - Activity Restrictions/Additional Instructions: 1. Instill 1 drop with ciprofloxacin every 2-4 hours while awake. 2. Contact your veterinary surgeon in the morning to seen within 24 to 48 hours Print Language: Nepali Disposition Disposition: Home, Self Care
[2024-11-16] MEDS: Ciprofloxacin 0.3% 2.5ml Bottle 1 DRP RIGHT EYE (19:57)
[2024-11-16 20:11] VITALS: BP 122/70; PULSE 52; RESP 16; TEMP 36.6; O2SAT 100
== END 2024-11-16 20:11 | disposition home or self-care (01) ==
PROVIDERS: Emergency Provider Emergency Medicine; PCP Family Medicine; Visit Provider Emergency Medicine
DX: H11.31 Conjunctival hemorrhage, right eye (principal); R00.1 Bradycardia, unspecified; Z87.891 Personal history of nicotine dependence; E78.00 Pure hypercholesterolemia, unspecified; H10.31 Unspecified acute conjunctivitis, right eye; I10 Essential (primary) hypertension; Z79.899 Other long term (current) drug therapy; X58.XXXA Exposure to other specified factors, initial encounter; Y93.89 Activity, other specified
CPT/HCPCS: 99283